=== PATIENT | male | born 1985 | race Caucasian/White ===

== ENCOUNTER 2016-07-26 17:04 | Emergency (ER) | payer SELFPAY ==
[2016-07-26] MEDS ORDERED: HYDROCODONE/ACETAMINOPHEN 5-325 MG TABLET PO ONE (17:35)
--- NOTE | 2016-07-26 18:04 | ER Document Report ---
HPI - HPI Patient complains to provider of: abscess Onset: Other - 3 days Onset/Duration: Sudden Quality of pain: Achy Severity: Severe Pain Level: 4 Context: Patient presents emergency department with complaints of boil under his left axilla. Patient reports started approximately 3 days ago. He reports area is painful to touch. Denies history of MRSA. Denies other symptoms such as fever vomiting diarrhea. Patient reports he went to urgent care yesterday and was placed on cephalexin and Septra. He reports they did not give him anything for pain. He reports they also told him it was an infected lymph node. Associated Symptoms: None Exacerbated by: Denies Relieved by: Denies Similar symptoms previously: No Recently seen / treated by doctor: No - CARDIOVASCULAR Cardiovascular: DENIES: Chest pain Past Medical History - General Information source: Patient - Social History Smoking Status: Current Every Day Smoker Cigarette use (# per day): Yes Chew tobacco use (# tins/day): No Frequency of alcohol use: None Drug Abuse: None Lives with: Family Family History: None Patient has suicidal ideation: No Patient has homicidal ideation: No - Medical History Medical History: Negative Renal/ Medical History: Denies: Hx Peritoneal Dialysis Surgical Hx: Negative Vertical Provider Document - CONSTITUTIONAL Agree With Documented VS: Yes Exam Limitations: No Limitations General Appearance: WD/WN, Mild Distress - winces when area palpated - INFECTION CONTROL TRAVEL OUTSIDE OF THE [place] IN LAST 30 DAYS: No - HEENT HEENT: Atraumatic, Normocephalic - NECK Neck: Normal Inspection, Supple - RESPIRATORY Respiratory: No Respiratory Distress O2 Sat by Pulse Oximetry: 98 - CARDIOVASCULAR Cardiovascular: Regular Rate - GI/ABDOMEN Gastrointestinal: Abdomen Soft - MUSCULOSKELETAL/EXTREMETIES Musculoskeletal/Extremeties: MAEW, FROM - NEURO Level of Consciousness: Awake, Alert, Appropriate Motor/Sensory: No Motor Deficit - DERM Integumentary: Abscess - Very small abscess ~2 cm around noted under left axilla. Small pustule surrounded by erythema, very ttp Course - Re-evaluation Re-evalutation: 07/26/16 18:56 Patient instructed on the importance of keeping area clean. He is already taking Keflex and Septra and was instructed to continue taking these medications. He was also instructed on pain medication. Instructed on returning to the emergency department if abscess increased in size, he verbalized understanding to all instructions - Vital Signs Vital signs: Temp Pulse Resp BP Pulse Ox 98.6 F 82 18 120/75 98 07/26/16 17:16 07/26/16 17:16 07/26/16 17:16 07/26/16 17:16 07/26/16 17:16 Procedures - Incision and Drainage Left axilla Type: Simple Anesthetic type: 1% Lidocaine Blade size: 11 I&D procedure: Shurclens applied Incision Method: Incision made by scalpel Notes: 07/26/16 18:55 small horizontal incision made, with small amount of discharge obtained Discharge - Discharge Clinical Impression: Abscess Condition: Stable Disposition: HOME, SELF-CARE Instructions: Abscess ([facility]), Oral Narcotic Medication ([facility]) Additional Instructions: *You have been treated for an abscess with incision and drainage *Take medication as prescribed *Monitor the site for signs of increasing infection such as increasing pain, redness, swelling, warmth *Wash the site twice daily as discussed *Follow up with a primary care provider within 5 days for recheck *Return to ED for signs of increasing infection, worsening condition, changes, needs Prescriptions: Oxycodone HCl/Acetaminophen [Percocet 5-325 mg Tablet] 1 - 2 tab PO ASDIR PRN # 15 tablet PRN Reason: Referrals: MJ LUCERO PA-C [Primary Care Provider] - Follow up in 3-5 days
[2016-07-26 19:03] VITALS: BP 116/80
== END 2016-07-26 19:03 | disposition home or self-care (01) ==
LOC: ER 17:04
PROC: 0H9CXZZ Drainage of Left Upper Arm Skin, External Approach (ICD-10-PCS; principal; 2016-07-26)
DX: L02.412 Cutaneous abscess of left axilla (principal); F17.210 Nicotine dependence, cigarettes, uncomplicated
CPT/HCPCS: 87070; 87075; 87077; 87186; 87205; 99283

== ENCOUNTER 2016-07-28 16:30 | Emergency (ER) | payer SELFPAY ==
--- NOTE | 2016-07-28 17:09 | ER Document Report ---
ED Medical Screen (RME) - General Chief Complaint: Abscess Stated Complaint: LEFT ARMPIT PAIN Time Seen by Provider: 07/28/16 17:06 Notes: 30-year-old male patient with left axillary abscess. He was seen here 2 days ago, had the area lanced and small amount of pus came out. It appears to have been a very small incision and no packing placed. There is now more pain and swelling. I have greeted and performed a rapid initial assessment of this patient. A comprehensive ED assessment and evaluation of the patient, analysis of test results and completion of the medical decision making process will be conducted by additional ED providers. TRAVEL OUTSIDE OF THE [place] IN LAST 30 DAYS: No - Related Data Allergies/Adverse Reactions: Penicillins Allergy (Verified 07/28/16 17:05) unknown iodine Adverse Reaction (Verified 07/28/16 17:05) Nausea Past Medical History - Social History Chew tobacco use (# tins/day): No Frequency of alcohol use: Occasional Drug Abuse: None Pulmonary Medical History: Reports: Hx Pneumonia Renal/ Medical History: Denies: Hx Peritoneal Dialysis Surgical Hx: Negative - Immunizations Hx Diphtheria, Pertussis, Tetanus Vaccination: No Physical Exam - Vital signs Vitals: Temp Pulse Resp BP Pulse Ox 97.8 F 89 16 142/75 H 98 07/28/16 16:35 07/28/16 16:35 07/28/16 16:35 07/28/16 16:35 07/28/16 16:35 Course - Vital Signs Vital signs: Temp Pulse Resp BP Pulse Ox 97.8 F 89 16 142/75 H 98 07/28/16 16:35 07/28/16 16:35 07/28/16 16:35 07/28/16 16:35 07/28/16 16:35
[2016-07-28] MEDS ORDERED: OXYCODONE-ACETAMINOPHEN 5-325 MG TABLET PO ONE (17:10)
[2016-07-28] MEDS ORDERED: ONDANSETRON 4 MG TAB.RAPDIS PO ONE (17:10)
[2016-07-28] MEDS ORDERED: LIDOCAINE 1%/EPINEPHRINE INJ 20 ML VIAL INJ ONE (19:09)
--- NOTE | 2016-07-28 19:13 | ER Document Report ---
ED Skin Rash/Insect Bite/Abscs - General Chief Complaint: Abscess Stated Complaint: LEFT ARMPIT PAIN Time Seen by Provider: 07/28/16 17:06 Notes: Patient is a 30 year old male that comes to the ED for chief complaint of left axillary abscess. He was seen here 2 days ago, had the area lanced and had small amount of purulent drainage. He was seen before that at [facility] and has been taking Bactrim and Keflex. The area now has increased swelling, pain, and appears to have a new head developing adjacent to the original. He denies history of the same. He denies history of diabetes. He denies fever/chills, nausea/vomiting, or any other symptoms. TRAVEL OUTSIDE OF THE [place] IN LAST 30 DAYS: No - Related Data Allergies/Adverse Reactions: Penicillins Allergy (Verified 07/28/16 17:05) unknown iodine Adverse Reaction (Verified 07/28/16 17:05) Nausea Past Medical History - General Information source: Patient - Social History Smoking Status: Current Every Day Smoker Chew tobacco use (# tins/day): No Frequency of alcohol use: Occasional Drug Abuse: None Lives with: Family Family History: None Pulmonary Medical History: Reports: Hx Pneumonia Renal/ Medical History: Denies: Hx Peritoneal Dialysis Surgical Hx: Negative - Immunizations Hx Diphtheria, Pertussis, Tetanus Vaccination: No Review of Systems - Review of Systems Constitutional: No symptoms reported EENT: No symptoms reported Cardiovascular: No symptoms reported Respiratory: No symptoms reported Gastrointestinal: No symptoms reported Genitourinary: No symptoms reported Male Genitourinary: No symptoms reported Musculoskeletal: No symptoms reported Skin: See HPI Hematologic/Lymphatic: No symptoms reported Neurological/Psychological: No symptoms reported Physical Exam - Vital signs Vitals: Temp Pulse Resp BP Pulse Ox 97.8 F 89 16 142/75 H 98 07/28/16 16:35 07/28/16 16:35 07/28/16 16:35 07/28/16 16:35 07/28/16 16:35 Interpretation: Normal - General General appearance: Appears well, Alert In distress: None - HEENT Head: Normocephalic, Atraumatic Eyes: Normal Conjunctiva: Normal Eyelashes: Normal Pupils: PERRL - Respiratory Respiratory status: No respiratory distress Chest status: Nontender Breath sounds: Normal Chest palpation: Normal - Cardiovascular Rhythm: Regular Heart sounds: Normal auscultation Murmur: No - Abdominal Inspection: Normal Distension: No distension Bowel sounds: Normal Tenderness: Nontender. No: Tender Organomegaly: No organomegaly - Back Back: Normal, Nontender - Extremities General upper extremity: Normal inspection, Nontender, Normal color, Normal ROM , Normal temperature General lower extremity: Normal inspection, Nontender, Normal color, Normal ROM , Normal temperature, Normal weight bearing. No: Arun's sign - Neurological Neuro grossly intact: Yes Cognition: Normal Orientation: AAOx4 [place] Coma Scale Eye Opening: Spontaneous [place] Coma Scale Verbal: Oriented [place] Coma Scale Motor: Obeys Commands [place] Coma Scale Total: 15 Speech: Normal Motor strength normal: LUE, RUE, LLE, RLE Sensory: Normal - Psychological Associated symptoms: Normal affect, Normal mood - Skin Skin Temperature: Warm Skin Moisture: Dry Skin Color: Normal Skin irregularity: Abscess - Left axillary abscess noted, no significant surrounding erythema, no surrounding lymphadenopathy, no other abnormalities noted. Course - Re-evaluation Re-evalutation: Left axilla noted to have a small previous incision over the area where there is now another abscess, no significant surrounding erythema, no nearby lymphadenopathy. Larger incision was made, area irrigated, explored, packed. Dressing placed. Patient provided with dressing materials, discussed care of the area, discussed return precautions in detail, patient states understanding and agreement. - Vital Signs Vital signs: Temp Pulse Resp BP Pulse Ox 97.9 F 60 16 141/81 H 100 07/28/16 20:50 07/28/16 20:50 07/28/16 20:50 07/28/16 20:50 07/28/16 20:50 Procedures - Incision and Drainage left axilla Type: Single Anesthetic type: 1% Lidocaine mL's of anesthetic: 8 Blade size: 11 I&D procedure: Shurclens applied - surgical cleanser, Other - non-iodoform packing placed Incision Method: Incision made by scalpel Amount/type of drainage: small amount of purulent drainage, some bloody drainage Discharge - Discharge Clinical Impression: Abscess Condition: Stable Disposition: HOME, SELF-CARE Additional Instructions: Keep a clean absorbing dressing over the area, clean the area gently with soap and water, dab dry. Avoid soaking. After 2 days remove the packing that was placed in the area, then continue clean absorbing dressing and soap/water cleaning. Complete the antibiotics you were prescribed. Follow-up with primary care. Return to emergency department for any concerning or worsening symptoms including spreading redness, swelling, fever, or any other concerning symptoms. Forms: Return to Work
[2016-07-28 21:23] VITALS: BP 141/81
== END 2016-07-28 20:50 | disposition home or self-care (01) ==
LOC: ER 16:30
PROC: 0H9CXZZ Drainage of Left Upper Arm Skin, External Approach (ICD-10-PCS; principal; 2016-07-28)
DX: L02.412 Cutaneous abscess of left axilla (principal); F17.200 Nicotine dependence, unspecified, uncomplicated
CPT/HCPCS: 99284; 10060; S0119; J3490

== ENCOUNTER 2016-07-30 13:34 | Emergency (ER) | payer SELFPAY ==
--- NOTE | 2016-07-30 15:27 | ER Document Report ---
ED Suture/Wound Recheck - General Chief Complaint: abcess Stated Complaint: ABSCESS/UNDER LEFT ARM Time Seen by Provider: 07/30/16 15:04 Mode of Arrival: Ambulatory Information source: Patient TRAVEL OUTSIDE OF THE [place] IN LAST 30 DAYS: No - HPI Previous ED treatment: I&D of abscess Antibiotics given previously: Prescription Quality of pain: Dull Severity: Moderate Pain Level: 2 Symptoms since procedure: Pain Exacerbated by: Denies Relieved by: Denies - Related Data Allergies/Adverse Reactions: Penicillins Allergy (Verified 07/28/16 17:05) unknown iodine Adverse Reaction (Verified 07/28/16 17:05) Nausea Past Medical History - General Information source: Patient - Social History Smoking Status: Current Every Day Smoker Frequency of alcohol use: Occasional Drug Abuse: None Lives with: Family Family History: None Patient has suicidal ideation: No Patient has homicidal ideation: No - Past Medical History Cardiac Medical History: Reports: None Pulmonary Medical History: Reports: Hx Pneumonia EENT Medical History: Reports: None Neurological Medical History: Reports: None Endocrine Medical History: Reports: None Renal/ Medical History: Reports: None Malignancy Medical History: Reports None GI Medical History: Reports: None Musculoskeltal Medical History: Reports Hx Musculoskeletal Deformity Skin Medical History: Reports Hx Cellulitis, Reports Hx MRSA Psychiatric Medical History: Reports: None Traumatic Medical History: Reports: None Infectious Medical History: Reports: Hx MRSA Past Surgical History: Reports: None - Immunizations Hx Diphtheria, Pertussis, Tetanus Vaccination: No Review of Systems - Review of Systems Constitutional: No symptoms reported EENT: No symptoms reported Cardiovascular: No symptoms reported Respiratory: No symptoms reported Gastrointestinal: No symptoms reported Genitourinary: No symptoms reported Male Genitourinary: No symptoms reported Musculoskeletal: No symptoms reported Skin: Other - Abscess to left axilla that he would like rechecked. It was I&Dd on Friday and Friday. Packing was removed today the patient is on Bactrim and Keflex Hematologic/Lymphatic: No symptoms reported Neurological/Psychological: No symptoms reported Physical Exam - Vital signs Vitals: Temp Pulse Resp BP Pulse Ox 98.3 F 80 16 137/71 H 99 07/30/16 13:58 07/30/16 13:58 07/30/16 13:58 07/30/16 13:58 07/30/16 13:58 Interpretation: Normal - General General appearance: Appears well, Alert - HEENT Head: Normocephalic, Atraumatic Eyes: Normal Pupils: PERRL - Respiratory Respiratory status: No respiratory distress Chest status: Nontender Breath sounds: Normal Chest palpation: Normal - Cardiovascular Rhythm: Regular Heart sounds: Normal auscultation Murmur: No - Abdominal Inspection: Normal Distension: No distension Bowel sounds: Normal Tenderness: Nontender Organomegaly: No organomegaly - Back Back: Normal, Nontender - Extremities General upper extremity: Normal inspection, Nontender, Normal color, Normal ROM , Normal temperature General lower extremity: Normal inspection, Nontender, Normal color, Normal ROM , Normal temperature, Normal weight bearing. No: Arun's sign - Neurological Neuro grossly intact: Yes Cognition: Normal Orientation: AAOx4 [place] Coma Scale Eye Opening: Spontaneous [place] Coma Scale Verbal: Oriented [place] Coma Scale Motor: Obeys Commands [place] Coma Scale Total: 15 Speech: Normal Motor strength normal: LUE, RUE, LLE, RLE Sensory: Normal - Psychological Associated symptoms: Normal affect, Normal mood - Skin Skin Temperature: Warm Skin Moisture: Dry Skin Color: Normal Skin irregularity: Abscess - No redness no drainage minimal pain and no swelling at this time to the left axilla. Site was irrigated with saline clean dressing applied and patient teaching given concerning care of the abscess now. Irregularity with: Tenderness Course - Vital Signs Vital signs: Temp Pulse Resp BP Pulse Ox 98.3 F 80 16 137/71 H 99 07/30/16 13:58 07/30/16 13:58 07/30/16 13:58 07/30/16 13:58 07/30/16 13:58 Discharge - Discharge Clinical Impression: Encounter for recheck of abscess following incision and drainage Condition: Stable Disposition: HOME, SELF-CARE Instructions: Family Physicians / Practices Additional Instructions: ABSCESS: Your abscess was rechecked today. You have an abscess (boil). This a pus-forming infection, usually due to staph. Some boils may be left to drain on their own, but most require lancing. From the time the tender lump first appears, it may be three or four days before the abscess is ready to edgardo. Local heat and rest help at this stage of treatment. An antibiotic may prevent spread of the infection. Once the abscess is opened, packing may be placed into it. This is done so pus is not sealed inside by premature closure of the cavity. The packing will be removed at your follow-up visit or you may be advised to remove it yourself at home. Sometimes this packing must be replaced a few times during healing. The wound will heal with surprisingly little scar. Depending on the size and location of an abscess, healing can take one to four weeks. You may shower and wash the area around the incision site two or three times a day. Antibiotics may be prescribed, but are usually not necessary after an abscess has been drained. If you develop fever, chills, worsening pain, or increasing swelling in the area, call the doctor or return immediately. MRSA CELLULITIS: You have an infection of your skin and underlying soft tissues called cellulitis. This is due to bacteria, which can enter through any break in the skin, or even through an irritated hair follicle. Untreated, cellulitis will usually worsen and may form an abscess which requires draining. Although many bacterial organisms can cause cellulitis and abscess formations, the most likely bacteria is Methicillin-Resistant Staph Aureus, or MRSA for short. Antibiotics are required. Usually, warm packs or warm soaks, and elevation of the infected area are recommended. You should start getting better within 24 to 36 hours. Most infections respond quickly to the right medication. Follow-up care is important, however, to check for abscess (boil) formation, unsuspected foreign body, or resistant infection. If you develop fever, chills, or if the area of infection is becoming rapidly more swollen or painful, call the doctor at once. Continue to take your Keflex and Bactrim for your abscess. Please take them until they are all gone. Please do not stop taking them because your feel that you are getting better CEPHALEXIN: The antibiotic you've been prescribed is a member of the cephalosporin class. This type of antibiotic covers a wide variety of infections, including those of the skin, lungs, and urinary tract. It's useful for staph infections. This antibiotic is slightly similar to the penicillin family. In rare cases , a person who is allergic to penicillin will also be allergic to this medication. If you have had a severe allergic reaction to penicillin, and have not taken this antibiotic since that time, notify your doctor. Antibiotics which cover many germs ("broad spectrum" antibiotics) are more likely to cause diarrhea or "yeast" infections. Women prone to vaginal yeast problems may suffer an attack after taking this antibiotic. In infants, oral thrush (white spots "stuck" on the cheek) or yeast diaper rash may result. See your doctor if these problems occur. Call at once if you develop itching, hives , shortness of breath, or lightheadedness. TRIMETHOPRIM-SULFA: You have been given a prescription for trimethoprim-sulfa (TMS, Septra, Bactrim). This is a combination antibiotic of the sulfa class, often used for urinary tract infections, middle ear infections, bronchitis, shigella intestinal infection, and Pneumocystis pneumonia. TMS is usually well-tolerated. Occasional side effects include nausea and decreased appetite. Septra is not recommended for infants less than two months of age. Do not take this medication if you have experienced severe side effects or allergy to sulfa medicine. You should stop this medicine at once and contact your physician if you develop any rash, joint pain, shortness of breath, bruising, or jaundice ( yellow color in the skin), or if you develop any other new or unusual symptoms. Irrigate the area with your shower at least twice a day. He states you have a hand-held shower that you can spray onto the sore you have completed your shower and wash the area well with some non-scented soap. Keep a dressing on the area to catch drainage until the opening seals over. Return to the ED for any increased pain, swelling, redness, or drainage. Call a primary doctor and follow-up in the next 3-5 days. FOLLOW-UP CARE: Most simple abscesses will not require a follow up visit. If you had packing placed in the abscess, remove it as instructed by the physician. If you have been referred to a physician for follow-up care, call the physicians office for an appointment as you were instructed or within the next two days. If you experience worsening or a significant change in your symptoms, return to the Emergency Department at any time for re-evaluation. Forms: Return to Work, Smoking Cessation Education, Elevated Blood Pressure
[2016-07-30 16:07] VITALS: BP 122/66
== END 2016-07-30 16:07 ==
LOC: ER 13:34
DX: L02.412 Cutaneous abscess of left axilla (principal); Z86.14 Personal history of Methicillin resistant Staphylococcus aureus infection; Z88.0 Allergy status to penicillin
CPT/HCPCS: 99282

== ENCOUNTER 2016-09-23 22:22 | Emergency (ER) | payer SELFPAY ==
[2016-09-23] MEDS ORDERED: NORMAL SALINE 1000 ML 1,000 ML IV PRN (23:50)
[2016-09-23] MEDS ORDERED: PROCHLORPERAZINE EDISYLATE INJ 10 MG/2 ML VIAL IM ONE (23:50)
[2016-09-23] MEDS ORDERED: KETOROLAC TROMETHAMINE INJ/PF 30 MG/1 ML SDV IV ONE (23:51)
--- NOTE | 2016-09-23 23:55 | ER Document Report ---
ED Headache - General Chief Complaint: Headache Stated Complaint: HEADACHE Time Seen by Provider: 09/23/16 23:40 Notes: The patient is a 31-year-old male, past medical history 1-2 headaches a month, presents with 3 days of bilateral temporal headache, similar to his prior headaches. He usually takes ibuprofen and it goes away, but it is not helping this time. He says the pain usually resolves at night and worsens during the day when he is outside in the heat. He denies blurry vision, nausea, vomiting, focal weakness, numbness, tingling, sudden onset of headache, fevers or neck stiffness. TRAVEL OUTSIDE OF THE [place] IN LAST 30 DAYS: No - Related Data Allergies/Adverse Reactions: Penicillins Allergy (Verified 07/28/16 17:05) unknown iodine Adverse Reaction (Verified 07/28/16 17:05) Nausea Past Medical History - General Information source: Patient - Social History Smoking Status: Current Every Day Smoker Family History: None Pulmonary Medical History: Reports: Hx Pneumonia Renal/ Medical History: Denies: Hx Peritoneal Dialysis Musculoskeltal Medical History: Reports Hx Musculoskeletal Deformity Skin Medical History: Reports Hx Cellulitis, Reports Hx MRSA Infectious Medical History: Reports: Hx MRSA - Immunizations Hx Diphtheria, Pertussis, Tetanus Vaccination: No Review of Systems - Review of Systems Notes: REVIEW OF SYSTEMS: CONSTITUTIONAL: -fevers, -chills EENT: -eye pain, -difficulty swallowing, -nasal congestion CARDIOVASCULAR:-chest pain, -syncope. RESPIRATORY: -cough, -SOB GASTROINTESTINAL: -abdominal pain, -nausea, -vomiting, -diarrhea GENITOURINARY: -dysuria, -hematuria MUSCULOSKELETAL: -back pain, -neck pain SKIN: -rash or skin lesions. HEMATOLOGIC: -easy bruising or bleeding. LYMPHATIC: -swollen, enlarged glands. NEUROLOGICAL: -altered mental status or loss of consciousness, +headache, - neurologic symptoms PSYCHIATRIC: -anxiety, -depression. ALL OTHER SYSTEMS REVIEWED AND NEGATIVE. Physical Exam - Vital signs Vitals: Temp Pulse Resp BP Pulse Ox 98.1 F 83 16 150/83 H 100 09/23/16 22:52 09/23/16 22:52 09/23/16 22:52 09/23/16 22:52 09/23/16 22:52 - Notes Notes: PHYSICAL EXAMINATION: GENERAL: Well-appearing, well-nourished and in no acute distress. HEAD: Atraumatic, normocephalic. EYES: Pupils equal round and reactive to light, extraocular movements intact, sclera anicteric, conjunctiva are normal. ENT: nares patent, oropharynx clear without exudates. Moist mucous membranes. NECK: Normal range of motion, supple without lymphadenopathy LUNGS: Breath sounds clear to auscultation bilaterally and equal. No wheezes rales or rhonchi. HEART: Regular rate and rhythm without murmurs ABDOMEN: Soft, nontender, normoactive bowel sounds. No guarding, no rebound. No masses appreciated. EXTREMITIES: Normal range of motion, no pitting or edema. No cyanosis. NEUROLOGICAL: Cranial nerves grossly intact. Normal speech, normal gait. Normal sensory and motor exams. PSYCH: Normal mood, normal affect. SKIN: Warm, Dry, normal turgor, no rashes or lesions noted. Course - Re-evaluation Re-evalutation: Patient headache is exactly the same as its prior headaches. Considered SAH, ICH and meningitis, but symptoms are atypical at this time. After headache cocktail, patient feels much better and his headache has resolved. Instructed him that he must drink plenty of fluids when he is working outside in the heat. He will follow-up with the neurologist for further evaluation and treatment of his chronic headaches. - Vital Signs Vital signs: Temp Pulse Resp BP Pulse Ox 98.1 F 83 16 150/83 H 100 09/23/16 22:52 09/23/16 22:52 09/23/16 22:52 09/23/16 22:52 09/23/16 22:52 Discharge - Discharge Clinical Impression: Headache Qualifiers: Headache type: unspecified Headache chronicity pattern: chronic headache Intractability: not intractable Qualified Code(s): R51 - Headache Condition: Stable Disposition: HOME, SELF-CARE Additional Instructions: HEADACHE: The physician does not feel that the headache you are experiencing has a serious underlying cause. Most headaches are due to emotional stress, with resultant muscle tension (tension headache). Occasionally, headaches are secondary to changes in the blood vessels of the scalp (vascular headache and migraine headache). Sometimes, a headache is the first symptom of another developing illness, such as a viral infection. You have no evidence of stroke, bleeding, meningitis, or other serious cause of your headache. The treatment of headaches varies with the severity and cause of the pain. Not all headaches need pain shots. In fact, there is evidence that using narcotics for headaches may make them worse in the long run. The physician will determine the therapy that's in your best interest. If you develop a fever, if the headache is different from any you've previously experienced, or if the headache progressively worsens, then call your physician at once or go to the emergency room. USE OF DIPHENHYDRAMINE: Diphenhydramine (Benadryl) is an antihistamine and has been recommended to help treat your headache and to prevent side effects of other medications used to treat headaches. The medication can be repeated four times daily. Age Elixir (12.5 mg/tsp) 25 mg pill adult 1-2 tabs Antihistamines may cause drowsiness, especially with the first dose. Do not operate machinery or drive while under the effects of the medication. Do not combine the medication with alcohol, or with any other medication without talking to your doctor. ANTINAUSEA MEDICATION: You have been given a medication to suppress nausea and vomiting. This type of medication can be given as a shot, pill, or suppository. It will usually last for many hours. Pills and shots usually last six to eight hours, suppositories last about 12 hours. For the typical illness, only one or two doses of the medication may be necessary. Mild lightheadedness may occur. This type of medicine can cause drowsiness. Do not drive or operate dangerous machinery while under its influence. Do not mix with alcohol. See your doctor at once if you have muscle spasms or tightness, or uncontrollable motions (particularly of the neck, mouth, or jaw). Persistent vomiting or severe lightheadedness should also be evaluated by the physician. INTRAVENOUS COMPAZINE FOR HEADACHE: You have received therapy for headaches, using intravenous Compazine. This treatment is dramatically successful in relieving the headache in about 50 percent of cases. When it works, it provides a rapid method of eliminating the headache without resorting to narcotics (and the problems associated with them). Most patients still feel fully alert after the Compazine, but others may be slightly drowsy. It's best not to drive or work with machinery for six to eight hours. Do not take alcohol or other medication unless you discuss it with the doctor. If you develop tightness and spasms in your muscles, especially the neck and tongue, you should return. This is a side effect which can be treated. TORADOL INJECTION: You have been given an injection of ketorolac tromethamine (Toradol). This is an excellent, safe drug for pain control. It also has potent antiinflammatory action. You should have significant pain relief within about one hour. Toradol is not addicting and is non-sedating. It does not interfere with driving or work. Call or return if you develop itching, hives, shortness of breath, or rash. FOLLOW-UP CARE: If you have been referred to a physician for follow-up care, call the physician s office for an appointment as you were instructed or within the next two days. If you experience worsening or a significant change in your symptoms, notify the physician immediately or return to the Emergency Department at any time for re-evaluation. Referrals: BENNIE GUERRA MD [ACTIVE STAFF] - Follow up as needed
[2016-09-24 01:53] VITALS: BP 127/71
== END 2016-09-24 01:52 | disposition home or self-care (01) ==
LOC: ER 22:22
DX: R51 Headache (principal); F17.200 Nicotine dependence, unspecified, uncomplicated; Z88.0 Allergy status to penicillin; Z86.14 Personal history of Methicillin resistant Staphylococcus aureus infection
CPT/HCPCS: 99283; 96361; 96374; 96375; J1885; J0780; J7030

== ENCOUNTER 2016-10-08 18:57 | Emergency (ER) | payer OTHER ==
[2016-10-08 19:15] VITALS: BP 145/77
[2016-10-08] MEDS ORDERED: IBUPROFEN 800 MG TABLET PO ONE (20:32)
--- NOTE | 2016-10-08 21:02 | ER Document Report ---
ED Extremity Problem, Lower - General Chief Complaint: Knee Injury Stated Complaint: FALL/RIGHT KNEE PAIN Time Seen by Provider: 10/08/16 20:22 Mode of Arrival: Ambulatory Information source: Patient Notes: 31-year-old male presents to ED for injury right knee yesterday at work states she slipped and fell on both knees worse on his right knee. He states he has not taken any pain medication because he did not know what was wrong with his knee and he did not know what to take. States he has not applied any ice to the injury or elevated the leg. Because he states that pain has been tolerable. He is concerned what is wrong or if he has broken anything in the knee. TRAVEL OUTSIDE OF THE [place] IN LAST 30 DAYS: No - HPI Patient complains to provider of: Injury, Pain, Swelling Location: Knee Occurred: Yesterday Where: Work Onset/Duration: Sudden, Persistent Quality of pain: Achy, Throbbing Severity: Moderate Pain Level: 3 Context: Fell - Normal both knees more weight on his right knee Recent injury: Yes Associated symptoms: Painful ambulation Exacerbated by: Movement, Walking Relieved by: Nothing - Related Data Allergies/Adverse Reactions: Penicillins Allergy (Verified 10/08/16 19:12) unknown iodine Adverse Reaction (Verified 10/08/16 19:12) Nausea Past Medical History - General Information source: Patient - Social History Smoking Status: Current Every Day Smoker Cigarette use (# per day): Yes - pack per day Chew tobacco use (# tins/day): No Smoking Education Provided: Yes - less than 2 min Frequency of alcohol use: Rare Drug Abuse: None Lives with: Family Family History: Arthritis, CAD, COPD, CVA, DM, Hyperlipidemia, Hypertension. denies: Malignancy, Thyroid Disfunction Patient has suicidal ideation: No Patient has homicidal ideation: No - Past Medical History Cardiac Medical History: Reports: None Pulmonary Medical History: Reports: Hx Pneumonia EENT Medical History: Reports: None Neurological Medical History: Reports: None Endocrine Medical History: Reports: None Renal/ Medical History: Reports: None Malignancy Medical History: Reports None GI Medical History: Reports: None Musculoskeltal Medical History: Reports Hx Arthritis, Reports Hx Musculoskeletal Deformity Skin Medical History: Reports Hx Cellulitis, Reports Hx MRSA Psychiatric Medical History: Reports: None Traumatic Medical History: Reports: None Infectious Medical History: Reports: Hx MRSA Surgical Hx: Negative Past Surgical History: Reports: None - Immunizations Hx Diphtheria, Pertussis, Tetanus Vaccination: No Review of Systems - Review of Systems Constitutional: No symptoms reported EENT: No symptoms reported Cardiovascular: No symptoms reported Respiratory: No symptoms reported Gastrointestinal: No symptoms reported Genitourinary: No symptoms reported Male Genitourinary: No symptoms reported Musculoskeletal: Joint pain, Joint swelling Skin: No symptoms reported Hematologic/Lymphatic: No symptoms reported Neurological/Psychological: No symptoms reported -: Yes All other systems reviewed and negative Physical Exam - Vital signs Vitals: Temp Pulse Resp BP Pulse Ox 98.6 F 72 16 145/77 H 100 10/08/16 19:13 10/08/16 19:13 10/08/16 19:13 10/08/16 19:13 10/08/16 19:13 Interpretation: Normal - General General appearance: Appears well, Alert - HEENT Head: Normocephalic, Atraumatic Eyes: Normal Pupils: PERRL - Respiratory Respiratory status: No respiratory distress Chest status: Nontender Breath sounds: Normal Chest palpation: Normal - Cardiovascular Rhythm: Regular Heart sounds: Normal auscultation Murmur: No - Abdominal Inspection: Normal Distension: No distension Bowel sounds: Normal Tenderness: Nontender Organomegaly: No organomegaly - Back Back: Normal, Nontender - Extremities General upper extremity: Normal inspection, Nontender, Normal color, Normal ROM , Normal temperature General lower extremity: Normal color, Normal temperature. No: Arun's sign Knee: Tender, Ecchymosis, Pain with ROM, Patellar tendon intact. No: Abrasion, Deformity, Dislocation, Instability, Joint effusion, Laceration, Laxity with valgus stress, Laxity with varus stress, Popliteal fossa tender, Tender joint line, Unable to bear weight - Neurological Neuro grossly intact: Yes Cognition: Normal Orientation: AAOx4 [place] Coma Scale Eye Opening: Spontaneous [place] Coma Scale Verbal: Oriented [place] Coma Scale Motor: Obeys Commands [place] Coma Scale Total: 15 Speech: Normal Motor strength normal: LUE, RUE, LLE, RLE Sensory: Normal - Psychological Associated symptoms: Normal affect, Normal mood - Skin Skin Temperature: Warm Skin Moisture: Dry Skin Color: Normal Course - Re-evaluation Re-evalutation: 10/08/16 21:37 Hawk wrap applied to knee and patient given ibuprofen and ice in the emergency room. Patient states he would use his and ibuprofen when he goes home. Patient instructed to use ice and elevation to his knee and to follow-up with orthopedics if the knee continues to hurt. - Vital Signs Vital signs: Temp Pulse Resp BP Pulse Ox 98.6 F 72 16 145/77 H 100 10/08/16 19:13 10/08/16 19:13 10/08/16 19:13 10/08/16 19:13 10/08/16 19:13 - Diagnostic Test Radiology reviewed: Image reviewed, Reports reviewed Procedures - Immobilization Right Knee Time completed: 21:44 Immobilizer type: Hawk wrap, Crutches Post-Proc Neuro Vasc Exam: Normal Alignment checked and good: Yes Discharge - Discharge Clinical Impression: Contusion of right knee Qualifiers: Encounter type: initial encounter Qualified Code(s): S80.01XA - Contusion of right knee, initial encounter Condition: Stable Disposition: HOME, SELF-CARE Additional Instructions: CONTUSION: Your injury has resulted in a contusion -- a crushing of the deep tissues. No injury to important structures was detected during the physician's exam. Contusions vary in the amount of pain they cause, and in the length of time required for healing. Typically, the area will become bruised, and will remain painful to touch for two or three weeks. However, most patients are back to working and playing within a few days. After the initial period of rest and cold-packs, your symptoms (together with the doctor's recommendations) will determine how rapidly you can get back to full activity. Usually this means "do what feels okay, but don't do things that hurt." If re-examination was recommended, it's important to follow up as instructed. Call the doctor or return any time if pain increases, if swelling becomes severe, if you develop numbness or weakness in an injured extremity, or if any other alarming symptoms occur. HAWK WRAP: A compression dressing (hawk wrap) has been placed. This helps hold the area still. It limits swelling and internal bleeding. The wrap should be comfortably snug -- not tight. You should feel a sense of pressure, but not severe pain under the wrap. Unless the physician tells you otherwise, you can adjust the wrap for comfort. If the wrap causes symptoms suggesting it's too tight -- uncomfortable pressure, swelling or discoloration beyond the wrap, numbness, or severe pain - - you must loosen the wrap. If these symptoms don't resolve promptly, return for re-evaluation. USE OF CRUTCHES: The doctor has recommended that you not bear weight at this time. You will need to use crutches. Adjust the crutches so the tops come to about two inches under the armpit while you are standing upright. Use your hands -- not your armpits -- to support your weight. To get into a chair, support yourself with one crutch on the injured side. Hold the chair with the other hand, then lower yourself while putting all your weight on the good leg. Going up stairs is `good leg up, step up, then bring up crutches and bad leg.' Down stairs is `bad leg and crutches down, then bring good leg down.' If you develop numbness or swelling in an arm or hand, you are using the crutches incorrectly. Return if you are having any problems with the crutches. ICE & ELEVATION: Apply ice packs frequently against the painful area. Many different schedules are recommended, such as "20 minutes on, 20 minutes off" or "one hour ice, two hours rest." If you need to work, you may need to go longer between ice treatments. You should plan to have the area ice packed AT LEAST one- fourth of the time. The ice should be applied over the wrap, tape, or splint, or over a layer of cloth -- not directly against the skin. Some ice bags have a built-in cloth and can be put directly on the skin. Your injured part should be elevated as much as possible over the next 48 hours. Try to keep the injury above the level of the heart. Avoid use of the injured area. Elevation and rest will decrease the swelling. USE OF ZHYK-YOZ-LRAVNKS IBUPROFEN: Ibuprofen (Advil, Nuprin, Medipren, Motrin IB) is a medication for fever and pain control. In addition, it has anti- inflammatory effects which may be beneficial, especially in the treatment of injuries. It's best to take ibuprofen with food. Persons with ulcer disease or allergy to aspirin should notify their physician of this before taking ibuprofen. Ibuprofen can be given every four to six hours, for a total of four doses daily. Age Pain or fever dose Antiinflammatory dose 6-8 yr 200 mg (1 tab) 200 mg (1 tab) 9-11 yr 200 mg (1 tab) 200-400 mg (1-2 tab) 11-14 yr 200-400 mg (1-2 tab) 400 mg (2 tab) 15-adult 400 mg (2 tab) 600 mg (3 tab) FOLLOW-UP CARE: If you have been referred to a physician for follow-up care, call the physician s office for an appointment as you were instructed or within the next two days. If you experience worsening or a significant change in your symptoms, notify the physician immediately or return to the Emergency Department at any time for re-evaluation. Forms: Elevated Blood Pressure, Smoking Cessation Education, Return to Work Referrals: GORDON LOWE MD [ACTIVE STAFF] - Follow up as needed
--- NOTE | 2016-10-08 21:12 | RADIOLOGY REPORT (SQ) ---
EXAM DESCRIPTION: KNEE RIGHT 4 VIEWS COMPLETED DATE/TIME: 10/08/2016 8:57 pm REASON FOR STUDY: fall/injury COMPARISON: None. NUMBER OF VIEWS: Four views. TECHNIQUE: AP, lateral, and both oblique radiographic images acquired of the right knee. LIMITATIONS: None. FINDINGS: MINERALIZATION: Normal. BONES: No acute fracture or dislocation. No worrisome bone lesions. JOINT: No effusion. SOFT TISSUES: No soft tissue swelling. No radio-opaque foreign body. OTHER: No other significant finding. IMPRESSION: NEGATIVE STUDY OF THE RIGHT KNEE. NO RADIOGRAPHIC EVIDENCE OF ACUTE INJURY. TECHNICAL DOCUMENTATION: JOB ID: [id number] [employer]- All Rights Reserved
== END 2016-10-08 21:46 | disposition home or self-care (01) ==
LOC: ER 18:57
DX: S80.01XA Contusion of right knee, initial encounter (principal); W01.0XXA Fall on same level from slipping, tripping and stumbling without subsequent striking against object, initial encounter; Y99.0 Civilian activity done for income or pay; Z88.0 Allergy status to penicillin; F17.210 Nicotine dependence, cigarettes, uncomplicated; Z86.14 Personal history of Methicillin resistant Staphylococcus aureus infection
CPT/HCPCS: 99283

== ENCOUNTER 2016-11-24 23:00 | Emergency (ER) | payer SELFPAY ==
[2016-11-25] MEDS ORDERED: ALBUTEROL SULFATE 0.083% NEB 2.5 MG/3 ML AMPUL NEB ONE (00:31)
[2016-11-25] MEDS ORDERED: GUAIFENESIN/D-METHORPHAN (200-20 MG) SYRUP 10 ML PO ONE (00:31)
--- NOTE | 2016-11-25 00:41 | ER Document Report ---
ED Respiratory Problem - General Chief Complaint: Congestion Stated Complaint: CHEST CONGESTION,WHEEZING Time Seen by Provider: 11/25/16 00:31 Mode of Arrival: Ambulatory Information source: Patient Notes: Patient is a 31-year-old male who presents to the ER today for cough that is worsening after 5 days. Patient admits to feeling fever and chills but has not taken his temperature. He admits to shortness of breath and wheezing but denies history of asthma. He admits to sinus pressure and runny nose. He has not tried anything [id number]. TRAVEL OUTSIDE OF THE [place] IN LAST 30 DAYS: No - Related Data Allergies/Adverse Reactions: Penicillins Allergy (Verified 11/24/16 23:41) unknown iodine Adverse Reaction (Verified 11/24/16 23:41) Nausea Past Medical History - General Information source: Patient - Social History Smoking Status: Unknown if Ever Smoked Family History: Arthritis, CAD, COPD, CVA, DM, Hyperlipidemia, Hypertension. denies: Malignancy, Thyroid Disfunction Pulmonary Medical History: Reports: Hx Pneumonia Renal/ Medical History: Denies: Hx Peritoneal Dialysis Musculoskeltal Medical History: Reports Hx Arthritis, Reports Hx Musculoskeletal Deformity Skin Medical History: Reports Hx Cellulitis, Reports Hx MRSA Infectious Medical History: Reports: Hx MRSA - Immunizations Hx Diphtheria, Pertussis, Tetanus Vaccination: No Review of Systems - Review of Systems Constitutional: See HPI EENT: See HPI Cardiovascular: No symptoms reported Respiratory: See HPI Gastrointestinal: No symptoms reported Genitourinary: No symptoms reported Male Genitourinary: No symptoms reported Musculoskeletal: No symptoms reported Skin: No symptoms reported Hematologic/Lymphatic: No symptoms reported Neurological/Psychological: No symptoms reported Physical Exam - Vital signs Vitals: Temp Pulse Resp BP Pulse Ox 97.5 F 64 16 139/89 H 100 11/24/16 23:41 11/24/16 23:41 11/24/16 23:41 11/24/16 23:41 11/24/16 23:41 - Notes Notes: PHYSICAL EXAMINATION: GENERAL: Mildly ill-appearing, but in no acute distress. HEAD: Atraumatic, normocephalic. EYES: Pupils equal round and reactive to light, extraocular movements intact, sclera anicteric, conjunctiva are normal. ENT: ear canals without erythema or foreign body, TMs pearly boucher with good bony landmarks, nares with mucoid discharge, oropharynx clear without exudates. Moist mucous membranes. NECK: Normal range of motion, supple without lymphadenopathy LUNGS: Productive cough, otherwise CTAB and equal. No wheezes rales or rhonchi. HEART: Regular rate and rhythm without murmurs ABDOMEN: Soft, no tenderness. No guarding, no rebound BACK: no vertebral tenderness, normal ROM GI/: no CVA tenderness EXTREMITIES: Normal range of motion, no pitting edema. No cyanosis. NEUROLOGICAL: Cranial nerves grossly intact. Normal sensory/motor exams. PSYCH: Normal mood, normal affect. SKIN: Warm, Dry, normal turgor, no rashes or lesions noted Course - Re-evaluation Re-evalutation: 11/25/16 01:30 Patient feels much better after breathing treatment. Flu test was negative. I will treat him for sinusitis and bronchitis. - Vital Signs Vital signs: Temp Pulse Resp BP Pulse Ox 97.5 F 64 16 139/89 H 100 11/24/16 23:41 11/24/16 23:41 11/24/16 23:41 11/24/16 23:41 11/24/16 23:41 Discharge - Discharge Clinical Impression: Bronchitis Sinusitis Qualifiers: Sinusitis location: maxillary Chronicity: acute Recurrence: non-recurrent Qualified Code(s): J01.00 - Acute maxillary sinusitis, unspecified Condition: Stable Disposition: HOME, SELF-CARE Additional Instructions: Return immediately for any new or worsening symptoms. Follow up with primary care provider, call tomorrow to make followup appointment. Prescriptions: Azithromycin [Zithromax 250 mg Tablet] 250 mg PO ASDIR PRN #6 tablet PRN Reason: D-Methorphan Hb/Prometh HCl [Promethazine-Dm Syrup] 5 ml PO Q8 PRN #120 ml PRN Reason:
[2016-11-25] MEDS ORDERED: ALBUTEROL SULFATE HFA (90 MCG/PUFF) 8 GM MDI (1 MDI/ER DISP) IH PRN (01:35)
[2016-11-25 01:50] VITALS: BP 144/73
== END 2016-11-25 01:51 | disposition home or self-care (01) ==
LOC: ER 23:00
DX: J40 Bronchitis, not specified as acute or chronic (principal); J01.00 Acute maxillary sinusitis, unspecified; Z88.0 Allergy status to penicillin; Z86.14 Personal history of Methicillin resistant Staphylococcus aureus infection
CPT/HCPCS: 94640; 99283; 87804; J3490 ×2

== ENCOUNTER 2016-12-03 13:54 | Emergency (ER) | payer SELFPAY ==
[2016-12-03] MEDS ORDERED: IPRATROPIUM/ALBUTEROL 0.5-2.5 MG/3 ML AMPUL NEB ONE (14:12)
[2016-12-03] MEDS ORDERED: PSEUDOEPHEDRINE HCL 30 MG TABLET PO ONE (14:12)
--- NOTE | 2016-12-03 14:13 | ER Document Report ---
ED Respiratory Problem - General Chief Complaint: Cough Stated Complaint: CHEST CONGESTION,DIFFICULTY BREATHING Time Seen by Provider: 12/03/16 14:13 Notes: Patient is a 31-year-old male who returns to the emergency department complaining of cough and nasal congestion. Patient states that he was evaluated here on November 25 and discharged home on azithromycin and cough medicine. Patient states that his symptoms are persistent. States he has not been taking anything [id number]. Patient states that he is a current daily smoker. Denies any fever, chills, productive cough, chest pain. TRAVEL OUTSIDE OF THE [place] IN LAST 30 DAYS: No - Related Data Allergies/Adverse Reactions: Penicillins Allergy (Verified 12/03/16 13:56) unknown iodine Adverse Reaction (Verified 12/03/16 13:56) Nausea Past Medical History - Social History Smoking Status: Current Every Day Smoker Family History: Arthritis, CAD, COPD, CVA, DM, Hyperlipidemia, Hypertension. denies: Malignancy, Thyroid Disfunction Patient has suicidal ideation: No Patient has homicidal ideation: No Pulmonary Medical History: Reports: Hx Pneumonia Renal/ Medical History: Denies: Hx Peritoneal Dialysis Musculoskeltal Medical History: Reports Hx Arthritis, Reports Hx Musculoskeletal Deformity Skin Medical History: Reports Hx Cellulitis, Reports Hx MRSA Infectious Medical History: Reports: Hx MRSA - Immunizations Hx Diphtheria, Pertussis, Tetanus Vaccination: No Review of Systems - Review of Systems Constitutional: No symptoms reported EENT: See HPI Cardiovascular: No symptoms reported Respiratory: See HPI Gastrointestinal: No symptoms reported -: Yes All other systems reviewed and negative Physical Exam - Vital signs Vitals: Temp Pulse Resp BP Pulse Ox 97.6 F 88 20 140/72 H 97 12/03/16 13:59 12/03/16 13:59 12/03/16 13:59 12/03/16 13:59 12/03/16 13:59 - Notes Notes: PHYSICAL EXAM GENERAL: Alert, interacts well. HEAD: Normocephalic, atraumatic. EYES: Pupils equal, round, and reactive to light. Extraocular movements intact. ENT: Oral mucosa moist, tongue midline. NECK: Full range of motion. Supple. Trachea midline. LUNGS: Clear to auscultation bilaterally, no wheezes, rales, or rhonchi. No respiratory distress. HEART: Regular rate and rhythm. No murmurs, gallops, or rubs. ABDOMEN: Soft, nondistended, nontender. No guarding, rebound, or rigidity.. Bowel sounds present in all 4 quadrants. EXTREMITIES: Moves all 4 extremities spontaneously. No edema, radial and dorsalis pedis pulses 2/4 bilaterally. No cyanosis. NEUROLOGICAL: Alert and oriented x4. Normal speech. PSYCH: Normal affect, normal mood. SKIN: Warm, dry, normal turgor. No rashes or lesions noted. Course - Re-evaluation Re-evalutation: 12/03/16 14:13 Patient is a 31-year-old male is seen medically stable, no acute distress afebrile. Given that he has had a cough for approximately 2 weeks will send for chest x-ray. Otherwise no signs of fever, chills, concerns for infectious process. 12/03/16 15:11 No evidence of pneumonia or infiltrate or acute pulmonary process noted on chest x-ray. Patient states that he feels better after treatment. Will discharge home with instructions to take [id number] allergy medication with decongestant and follow-up with primary care. Patient agrees with plan. - Vital Signs Vital signs: Temp Pulse Resp BP Pulse Ox 97.6 F 88 20 140/72 H 97 12/03/16 13:59 12/03/16 13:59 12/03/16 14:10 12/03/16 13:59 12/03/16 13:59 - Diagnostic Test Radiology reviewed: Image reviewed, Reports reviewed Discharge - Discharge Clinical Impression: Rhinitis Qualifiers: Rhinitis type: unspecified Chronicity: acute Qualified Code(s): J00 - Acute nasopharyngitis [common cold] Condition: Good Disposition: HOME, SELF-CARE Instructions: Hay Fever ([facility]), Nasal Corticosteroid Inhaler ([facility]), Non- Sedating Prescription Antihistamine ([facility]), OTC Antihistamines ([facility]) Additional Instructions: Please go to your near by pharmacy to purchase a allergy medication with decongestant. This could include Claritin-D, Zyrtec-D, Lynn-D. You do not have to buy namebrand products. You can also look into Tylenol PM Cold and flu to help you sleep. Forms: Return to Work
--- NOTE | 2016-12-03 14:50 | RADIOLOGY REPORT (SQ) ---
EXAM DESCRIPTION: CHEST PA/LAT COMPLETED DATE/TIME: 12/03/2016 2:42 pm REASON FOR STUDY: cough for 2 weeks, smoker COMPARISON: None. EXAM PARAMETERS: NUMBER OF VIEWS: two views TECHNIQUE: Digital Frontal and Lateral radiographic views of the chest acquired. RADIATION DOSE: NA LIMITATIONS: none FINDINGS: LUNGS AND PLEURA: No opacities, masses or pneumothorax. No pleural effusion. MEDIASTINUM AND HILAR STRUCTURES: No masses or contour abnormalities. HEART AND VASCULAR STRUCTURES: Heart normal size. No evidence for failure. BONES: No acute findings. HARDWARE: None in the chest. OTHER: No other significant finding. IMPRESSION: NO SIGNIFICANT RADIOGRAPHIC FINDING IN THE CHEST. TECHNICAL DOCUMENTATION: JOB ID: [id number] [employer]- All Rights Reserved
[2016-12-03 15:30] VITALS: BP 120/78
== END 2016-12-03 15:30 | disposition home or self-care (01) ==
LOC: ER 13:54
DX: J00 Acute nasopharyngitis [common cold] (principal); R09.81 Nasal congestion; R05 Cough; F17.200 Nicotine dependence, unspecified, uncomplicated; Z88.0 Allergy status to penicillin; Z87.01 Personal history of pneumonia (recurrent); Z86.14 Personal history of Methicillin resistant Staphylococcus aureus infection
CPT/HCPCS: 94640; 99283; 71020; J7620

== ENCOUNTER 2017-03-19 10:05 | Emergency (ER) | payer SELFPAY ==
[2017-03-19 10:10] VITALS: BP 148/84
[2017-03-19] MEDS ORDERED: DIPH/PERTUSS(ACELL)/TETANUS VAC/PF 0.5 ML SYR (>=10YO) IM ONE (10:20)
[2017-03-19] MEDS ORDERED: ACETAMINOPHEN 325 MG TABLET PO ONE (10:20)
--- NOTE | 2017-03-19 10:22 | ER Document Report ---
HPI - HPI Patient complains to provider of: scalp injury Onset: Just prior to arrival Onset/Duration: Waxing and waning Quality of pain: Achy Pain Level: 2 Context: Patient states that he was in his house and bent over hitting his head on a counter edge. Patient with wound to scalp area. Patient denies any loss of consciousness, nausea or vomiting. Associated Symptoms: Headache. denies: Vomiting Exacerbated by: Denies Relieved by: Denies Similar symptoms previously: No Recently seen / treated by doctor: No - ROS ROS below otherwise negative: Yes Systems Reviewed and Negative: Yes All other systems reviewed and negative - NEURO Neurology: REPORTS: Headache. DENIES: Weakness, Vision blurred, Dizzinesss / Vertigo - GASTROINTESTINAL Gastrointestinal: DENIES: Nausea, Patient vomiting - MUSCULOSKELETAL Musculoskeletal: DENIES: Back Pain, Neck Pain - DERM Skin Problems: Laceration Past Medical History - General Information source: Patient - Social History Smoking Status: Current Every Day Smoker Smoking Education Provided: Yes Frequency of alcohol use: None Drug Abuse: None Occupation: food service team member Family History: Arthritis, CAD, COPD, CVA, DM, Hyperlipidemia, Hypertension. denies: Malignancy, Thyroid Disfunction Pulmonary Medical History: Reports: Hx Pneumonia Renal/ Medical History: Denies: Hx Peritoneal Dialysis Musculoskeltal Medical History: Reports Hx Arthritis, Reports Hx Musculoskeletal Deformity Skin Medical History: Reports Hx Cellulitis, Reports Hx MRSA Infectious Medical History: Reports: Hx MRSA Surgical Hx: Negative - Immunizations Hx Diphtheria, Pertussis, Tetanus Vaccination: No Vertical Provider Document - CONSTITUTIONAL Agree With Documented VS: Yes Exam Limitations: No Limitations General Appearance: WD/WN, No Apparent Distress - INFECTION CONTROL TRAVEL OUTSIDE OF THE [place] IN LAST 30 DAYS: No - HEENT HEENT: Normal ENT Exam, Normocephalic Notes: Superficial abrasion to left anterior scalp area, no active bleeding - NECK Neck: Normal Inspection, Supple. negative: Lymphadenopathy-Left, Lymphadenopathy-Right - RESPIRATORY Respiratory: Breath Sounds Normal, No Respiratory Distress O2 Sat by Pulse Oximetry: 99 - CARDIOVASCULAR Cardiovascular: Regular Rate, Regular Rhythm - BACK Back: Normal Inspection - MUSCULOSKELETAL/EXTREMETIES Musculoskeletal/Extremeties: MAEW - NEURO Level of Consciousness: Awake, Alert, Appropriate Motor/Sensory: No Motor Deficit - DERM Integumentary: Warm, Dry Notes: abrasion to scalp Course - Vital Signs Vital signs: Temp Pulse Resp BP Pulse Ox 98.2 F 79 16 148/84 H 99 03/19/17 10:10 03/19/17 10:10 03/19/17 10:10 03/19/17 10:10 03/19/17 10:10 Discharge - Discharge Clinical Impression: Elevated blood pressure reading Scalp abrasion Qualifiers: Encounter type: initial encounter Qualified Code(s): S00.01XA - Abrasion of scalp, initial encounter Condition: Stable Disposition: HOME, SELF-CARE Instructions: Abrasions ([facility]), Antibiotic Ointment Protection ([facility]), Head Injury Precautions ([facility]), Tetanus Immunization Given ([facility]) Additional Instructions: Return immediately for any new or worsening symptoms Followup with your primary care provider, call tomorrow to make a followup appointment Forms: Elevated Blood Pressure, Smoking Cessation Education, Return to Work Referrals: MJ LUCERO PA-C [NO LOCAL MD] - Follow up as needed
== END 2017-03-19 10:49 | disposition home or self-care (01) ==
LOC: ER 10:05
DX: S00.01XA Abrasion of scalp, initial encounter (principal); R03.0 Elevated blood-pressure reading, without diagnosis of hypertension; F17.200 Nicotine dependence, unspecified, uncomplicated; W22.8XXA Striking against or struck by other objects, initial encounter
CPT/HCPCS: 90471; 90715; 99282